=== PATIENT | female | born 1970 | race African-American/Black ===

== ENCOUNTER 2020-09-20 11:56 | Emergency (ER) | payer MEDICAID ==
[~2020-09-20] VITALS: Ht 170.2 cm; Wt 105.0 kg
[~2020-09-20 11:56] MED LIST: [UNRECOGNIZED DRUG - REMARK]
[2020-09-20] MEDS ORDERED: SODIUM CHLORIDE 0.9% 1,000 ML IV ONE (12:15)
[2020-09-20] MEDS ORDERED: NALOXONE HCL 0.4 MG/ML 1ML VIAL IV PRN (12:15)
[2020-09-20 13:42] LABS: BASOPHILS % 0.3 % (0.0-2.0); EOSINOPHILS % 0.4 % (0.0-5.0); HEMATOCRIT. 38.2 % (36.0-48.0); HEMOGLOBIN. 12.5 g/dL (12.0-16.0); LYMPHOCYTES % 11.5 % (20.0-50.0); MEAN CORPUSCULAR HEMOGLOBIN 27.8 pg (28.0-32.0); MEAN CORPUSCULAR VOLUME 85.5 fL (81.0-99.0); MEAN PLATELET VOLUME 9.1 fl (7.4-10.4); MONOCYTES % 7.8 % (2.0-8.0); PLATELET 233 x1000/uL (130-400); RED BLOOD CELL COUNT 4.47 mill/uL (4.2-5.4); RED CELL DISTRIBUTION WIDTH 15.7 % (11.6-14.6)
[2020-09-20 13:46] LABS: CHLORIDE 109 mEq/L (98-107)
[2020-09-20 13:50] LABS: ETHANOL BLOOD < 10 mg/dL
[2020-09-20 14:11] LABS: HCG SCREEN NEGATIVE
[2020-09-20] MEDS ORDERED: NALO4SPR BOTHNSTRLS (20:04)
[2020-09-20] MEDS ORDERED: POTASSIUM CHLORIDE 20MEQ TABLET SR PO ONE (20:15)
[2020-09-20 20:40] VITALS: BP 127/81
== END 2020-09-20 20:45 | disposition home or self-care (01) ==
LOC: ER 12:16
DX: R41.82 Altered mental status, unspecified (principal); I49.9 Cardiac arrhythmia, unspecified
CPT/HCPCS: 36415; 70450; 80053; 80307; 80320; 80329; 82962; 84703; 85025; 93005; 96360; 99285; J7030; G0480